=== PATIENT | female | born 1955 ===

== ENCOUNTER 2020-01-09 01:55 | Inpatient (IN) | payer MEDICARE, BC ==
[2020-01-09] VITALS (7 sets, daily range): BP systolic 113–153; BP diastolic 39–76
[~2020-01-09] VITALS: Ht 162.5 cm; Wt 76.9 kg
[~2020-01-09 01:55] MED LIST: ASPIR LOW81 MG PO; CENTRUM SILVER1 EACH PO; HYDR25T PO; KLOR-CON 1010 ME1 PO; LIPITOR40 MG PO; MAGNESIUM400 MG PO; PRINIVIL20 M1 PO
--- NOTE | 2020-01-09 10:10 | NUR ---
MSADMTime: N A 64 year old FEMALE admitted to under services of WILMA HERNANDEZ DO. Pt. arrived via wheel chair from [place]. Chief complaint: SURGERY LT FOOT. CHELSIE SOLIZ
--- NOTE | 2020-01-09 10:32 | NUR ---
DR. DE LOS SANTOS'S OFFICE NOTIFIED OF CONSULT.
--- NOTE | 2020-01-09 20:00 | NUR ---
RESTING IN BED; VOICES NO C/O AT THIS TIME. CALL LIGHT WITHIN REACH.
[2020-01-10] VITALS: BP 126/54
--- NOTE | 2020-01-10 04:00 | NUR ---
RESTING IN BED; VOICES NO C/O AT THIS TIME. CALL LIGHT WITHIN REACH.
--- NOTE | 2020-01-10 05:11 | NUR ---
SHAUN VILLEGAS [id number] Please refer to the physician's history and physical for past medical history, comorbid conditions, and allergies. Diagnosis: OSTEOMYLEITIS LEFT FOOT Rigo Score: 21,LOW OR NO RISK WOUND DESCRIPTIONS: Dressing intact to left lower extremity. No strikethrough drainage noted at time of assessment. Patient stated she is unsure of where she is going to follow up since she lives in [place] and was referred up here from her podiatry office to this podiatry office up here. She states she is waiting for them to tell her who she needs to follow up. Surface the patient is resting on: Isoflex SKIN PREVENTION RECOMMENDATION: 1. Pressure redistribution support surface as appropriate 2. Elevate heels 3. Remove boots/TEDS every shift and reapply 4. Head of bed 30 degrees as tolerated 5. Assess nutrition and hydration 6. Manage moisture 7. Avoid the use of containment devices while in bed 8. Use absorptive products on surfaces limit layers of linens on bed 9. Turn and reposition every 1-2 hours in bed and every 1 hour in chair as tolerated 10. Weight shifts every 15 minutes while up in chair 11. Offloading with pillows or device to keep heels elevated off bed 12. Monitor skin at least every shift 13. Inspect under medical devices twice a day WOUND TREATMENT RECOMMENDATIONS: Patient is waiting for podiatry to state where she will follow up since she lives in [place]
[2020-01-10 08:00] VITALS: BP 152/72
--- NOTE | 2020-01-10 08:44 | NUR ---
Dr. Luis notified of wound care recommendations
[2020-01-10 10:58] LABS: BASO % 0.5 % (0.0-1.0); EOS # 0.2 10*3/uL (0.0-0.4); EOS % 3.6 % (1.0-4.0); HEMATOCRIT 37.7 % (37.0-47.0); HEMOGLOBIN 12.7 g/dl (12.0-16.0); LYMPH # 2.8 10*3/uL (1.3-4.4); LYMPH % 49.1 % (27.0-41.0); MEAN CELL VOLUME 89.8 fl (81.0-99.0); MEAN CORPUSCULAR HGB 30.2 pg (27.0-31.0); MEAN CORPUSCULAR HGB CONC 33.7 g/dl (33.0-37.0); MEAN PLATELET VOLUME 10.2 fl (9.6-12.3); MONO # 0.4 10*3/uL (0.1-1.0); MONO % 6.9 % (3.0-9.0); NEUT # 2.2 10*3/uL (2.3-7.9); NEUT % 39.9 % (47.0-73.0); PLATELET COUNT AUTOMATED 197 10*3/uL (130-400); RED CELL DISTRI WIDTH 13.1 % (0-14.5); WHITE BLOOD COUNT 5.6 10*3/uL (4.8-10.8)
--- NOTE | 2020-01-10 11:00 | NUR ---
Occupational Therapy evaluation completed on four with full evaluation to follow. Recommend occupational therapy per plan of care and SNF upon discharge. Thank you for this referral. Susy Granda OTR/L
[2020-01-10 11:05] LABS: ACID FAST SPEC PROCESSING Tissue Grinding (.)
[2020-01-10 11:05] LABS: ACID FAST SPEC PROCESSING Tissue Grinding (.)
[2020-01-10 11:05] LABS: ACID FAST SPEC PROCESSING Tissue Grinding (.)
[2020-01-10 11:27] LABS: ACT PARTIAL THROMBO TIME 25.4 SECONDS (20.0-32.1)
[2020-01-10 11:28] LABS: ALBUMIN 2.9 gm/dl (3.1-4.5); ALKALINE PHOSPHATASE 94 U/L (45-117); BUN 12 mg/dl (7-24); CHLORIDE 108 mmol/L (98-107); CREATININE 0.49 mg/dL (0.55-1.02); PHOSPHOROUS 2.9 mg/dL (2.5-4.9); POTASSIUM 3.6 mmol/L (3.5-5.1); SGOT/AST 14 IU/L (3-35); SGPT/ALT 28 U/L (12-78); SODIUM 142 mmol/L (136-145); TOTAL PROTEIN 6.7 gm/dL (6.4-8.2)
--- NOTE | 2020-01-10 11:28 | NUR ---
PHYSICAL THERAPY Pt was seen for evaluation today while pt on 4th floor. Pt was educated on maintaining NWB left LE during transfers, as well as avoiding resting left foot onto floor. Pt completed transfers with use of FWW with maximal cuing and required CGA for safety to bed side recliner. Refer to PT evaluation for further details. Pt is moderate complexity based on current and past medical history, as well as current functional status. Recommend home health PT following acute care discharge. Thank you for this referral Christina Calvillo, PT
[2020-01-10 11:29] LABS: FREE T4 0.9 ng/dl (0.76-1.46)
--- NOTE | 2020-01-10 11:53 | NUR ---
Nutritional Support Services Note: Dx of osteomyelitis of left foot, HTN. Ht.5'4 Wt.170#. Appetite is good for meals. She is eating 100% of all meals. She receives a regular diet as ordered. No other nutrition intervention needed at this time. Will follow as needed. Alma Rosa Shanks Rdn Ld
[2020-01-10 12:00] VITALS: BP 155/70
--- NOTE | 2020-01-10 12:07 | NUR ---
Leacher in to talk to patient. Patient states lives at HOME with . There are FEW steps in the home. Physician: PT SEE MD IN [facility] Pharmacy: [facility] Home health services: NONE Patient's level of ADLs: INDEPENDENT Patient has working utilities: YES DME: [facility]CHA[facility] Follow-up physician's appointment after d/c: PREFERS TO MAKE OWN ON DISCHARGE Does patient want to access PORTAL?: Discharge plan PT LIVES WITH AT HOME AND IS INDEPENDENT IN HER CARE. STATES THEY TOLD HER SHE WOULD NEED IV ANTIBIOTICS ON DISCHARGE. WILL WAIT FOR ORDERS AFTER CULTURES BACK. PT LIVES IN [facility]. WILL CONTINUE TO FOLLOW. . LISA DEVINE
--- NOTE | 2020-01-10 13:45 | NUR ---
PHYSICAL THERAPY Patient seen this pm 1:1 for therapy visit and was sitting up in bedside chair following lunch, upon therapist arrival. Patient identified by name / and reports no c/o's pain at this time. Patient performed several sit to stand transfers from low chair surface, CGA, demonstrating slow rise, requiring v/c to improve transfer technique. Patient is NWB on L LE while presenting with gauze / opal wrap and heel protector. Patient completed several additional transfers, improving to SBA, use of wh walker standing support, NWB on L LE, tolerating approx 90 seconds static stand each trial. Patient still reports no c/o's pain and demonstrated Fair+ standing balance with Good upright posture. Patient returned to bedside chair with only mild fatigue noted and remained with call light, tray table and telephone. Will continue per POC as tolerated, total treatment time 14 minutes. Ady Max, HEALTH SCIENCES DEPARTMENT CHAIR
[2020-01-10 16:00] VITALS: BP 132/51
[2020-01-10 20:00] VITALS: BP 147/60
--- NOTE | 2020-01-10 21:27 | NUR ---
24 HR chart check completed.
[2020-01-11] VITALS: BP 131/60
--- NOTE | 2020-01-11 04:10 | NUR ---
ALERT PLEASANT. NO ACUTE DISTRESS NOTED. WAS UP TO BEDSIDE COMMODE AND BACK TO BED. NONWT BEARING ON LEFT LEG.
--- NOTE | 2020-01-11 07:58 | NUR ---
Faxed prescriptions from [facility] to [facility]. IV Daptomycin 10 mg/kg daily x 6 weeks and IV Ertapenem 1 gm daily x 6 weeks. Awaiting response.
[2020-01-11 08:00] VITALS: BP 125/94
--- NOTE | 2020-01-11 08:42 | NUR ---
OT NOTE Attempted to see pt this A.M. for OT session and upon arrival pt was under a medical procedure. Will check back at a later time/date and continue with POC as able. DAKOTAH Castañeda/Mark
--- NOTE | 2020-01-11 09:44 | NUR ---
Received call from Meme from [facility]. They are going to send the prescriptions to their [place] office. Awaiting response from their [place] office.
--- NOTE | 2020-01-11 11:00 | NUR ---
OT NOTE Pt was seen this A.M. 1:1 for 15 minute OT session. Upon arrival pt was supine in bed. Pt identified by name and and had no complaints at this time. Pt transferred supine to sit EOB with SBA. Sit to stand completed from bed level with CGA and use of w/w for UE support. Challenged pt's static standing tolerance needed for increased I in self care tasks and functional transfers. Pt was able to tolerate aprox 3-4 minutes at a time before sitting due to fatigue amd throughout pt was 100% compliant with NWB to LLE. Standing piot then completed from the EOB to the recliner with CGA and use of w/w. There she was left with call light in hand, tray table in place, and phone in reach Continue with rec D/C plan to home with home health. DAKOTAH Castañeda/Mark
--- NOTE | 2020-01-11 11:18 | NUR ---
PHYSICAL THERAPY TREATMENT TIME: IN 10:52 17 MINUTES TOTAL. Patient presented to therapy in supine in bed with head of bed elevated and bed alarm activated. Patient reports minimal to no pain in the L LE. Patient gives informed consent for treatment. Patient was identified by name and on wristband. Patient performed supine to sitting on EOB with SBA. Patient sat on EOB SBA. Patient transferred sit to stand from EOB with SBA. Patient completed SPT to bedside chair with Walker and SBA-CGA. Patient completed sit to stand from bedside chair with CGA-SBA. Patient stood at the Walker for 3 min 23 seconds with SBA-CGA. Patient was left in bedside chair with call light within reach and tray table in front of patient. Patient was 1:1 with this ENGINE INSPECTOR for 17 minutess total. WILMER RÍOS ENGINE INSPECTOR
--- NOTE | 2020-01-11 11:30 | NUR ---
PER MANOHAR AT [facility] MEDS ARE COVERED AT 100%. THEY WILL HAVE THEM DELIVERED TO PT HOME BY NOON TOMORROW. FAXED REFERRAL TO [facility] FOR REVIEW. THEY WILL CALL ME AFTER THEY REVIEW CHART.
[2020-01-11 12:00] VITALS: BP 113/51
--- NOTE | 2020-01-11 12:40 | NUR ---
PHYSICAL THERAPY CO-SIGN I approve of the Physical Therapy notes written above. Malini Epperson PT
--- NOTE | 2020-01-11 12:42 | NUR ---
OCCUPATIONAL THERAPY CO-SIGN I approve of the Occupational Therapy notes written above. RAIN MARS, OTR/L
--- NOTE | 2020-01-11 12:51 | NUR ---
HAVE ATTEMPTED TO FAX REFERRAL SEVERAL TIMES TO [facility] BUT LINE IS BUSY. CALLED TO MAKE SURE I HAD THE RIGHT NUMBER WHICH I DID. PER AI AT [facility] SHE STATES TO EMAIL REFERRAL WHICH I DID.
--- NOTE | 2020-01-11 13:17 | NUR ---
RECEIVED A RETURN CALL FROM [facility] THEY ARE ACCEPTING PT AND WILL BE AT HER HOUSE AFTER NOON TOMORROW TO START TREATMENT. PT INFORMED.
--- NOTE | 2020-01-11 14:50 | NUR ---
UNABLE TO OBTAIN DISCHARGE PHOTO/MEASUREMENTS DUE TO BULKY DRSG TO LEFT LEG/FOOT. ORDERED NOT TO REMOVE BY PODIATRY.
--- NOTE | 2020-01-11 15:24 | NUR ---
Received call from Nata at [facility]. They are going to drop off her IVs tonight on there 6pm run. Notified patient.
--- NOTE | 2020-01-11 17:03 | NUR ---
Discharge instructions reviewed with patient/family. Patient receptive and verbalizes understanding. Follow-up care arranged. Written instructions given to patient/family. FITO MCKEON
== END 2020-01-11 17:03 | disposition home or self-care (01) | DRG 479 ==
LOC: SDC 01:55 → 4E 09:15 → SDC 11:00 → 4E 01-11 17:03
PROVIDERS: Internal Medicine; Podiatrist; ADMIT Internal Medicine
PROC: 0QBP0ZX Excision of Left Metatarsal, Open Approach, Diagnostic (ICD-10-PCS; principal; 2020-01-09)
PROC: 0QBP0ZZ Excision of Left Metatarsal, Open Approach (ICD-10-PCS; principal; 2020-01-09)
PROC: B548ZZA Ultrasonography of Superior Vena Cava, Guidance (ICD-10-PCS; 2020-01-11)
PROC: 02HV33Z Insertion of Infusion Device into Superior Vena Cava, Percutaneous Approach (ICD-10-PCS; 2020-01-11)
DX: M86.172 Other acute osteomyelitis, left ankle and foot (principal); L08.89 Other specified local infections of the skin and subcutaneous tissue; E78.5 Hyperlipidemia, unspecified; I10 Essential (primary) hypertension; L97.529 Non-pressure chronic ulcer of other part of left foot with unspecified severity; M21.962 Unspecified acquired deformity of left lower leg; Q05.9 Spina bifida, unspecified; Z90.49 Acquired absence of other specified parts of digestive tract; Z83.3 Family history of diabetes mellitus; Z82.3 Family history of stroke; Z80.1 Family history of malignant neoplasm of trachea, bronchus and lung; Z82.49 Family history of ischemic heart disease and other diseases of the circulatory system; Z79.82 Long term (current) use of aspirin; Z79.899 Other long term (current) drug therapy

== ENCOUNTER → 2020-03-19 | Day surgery (SDC) | payer MEDICARE, BC ==
[~2020-03-19] VITALS: Ht 162.5 cm; Wt 76.7 kg
[~2020-03-19] MED LIST changes: +DOXYCYCLINE100 M3 PO; +GLUCOPHAGE500 M1 PO; +TRAMADOL HCL100 MG PO; +XARELTO10 MG PO
[2020-03-19 09:00] VITALS: BP 113/48
[2020-03-19 14:12] VITALS: BP 120/51
[2020-03-19 14:27] VITALS: BP 98/44
[2020-03-19 14:42] VITALS: BP 107/53
[2020-03-19 14:57] VITALS: BP 106/59
[2020-03-19 15:12] VITALS: BP 119/58
== END | disposition home or self-care (01) ==
LOC: SDC 03-18 11:00
DX: M21.6X2 Other acquired deformities of left foot (principal); M20.42 Other hammer toe(s) (acquired), left foot; M20.12 Hallux valgus (acquired), left foot; M21.172 Varus deformity, not elsewhere classified, left ankle; M19.072 Primary osteoarthritis, left ankle and foot; M24.542 Contracture, left hand; E11.9 Type 2 diabetes mellitus without complications; I10 Essential (primary) hypertension; Z79.899 Other long term (current) drug therapy

== ENCOUNTER → 2020-04-02 | Outpatient (CLI) | payer MEDICARE, BC | END | disposition home or self-care (01) | LOC: COVID19 11:19 | DX: Z01.818 Encounter for other preprocedural examination (principal); Z11.59 Encounter for screening for other viral diseases; W57.XXXA Bitten or stung by nonvenomous insect and other nonvenomous arthropods, initial encounter; Y93.89 Activity, other specified; Y92.89 Other specified places as the place of occurrence of the external cause; Y99.8 Other external cause status ==

== ENCOUNTER → 2020-04-09 | Day surgery (SDC) | payer MEDICARE, BC ==
[~2020-04-09] VITALS: Ht 162.5 cm; Wt 76.2 kg
[2020-04-09 13:15] VITALS: BP 140/79
[2020-04-09 17:45] VITALS: BP 128/63
[2020-04-09 18:00] VITALS: BP 117/50
[2020-04-09 18:15] VITALS: BP 129/61
[2020-04-09 18:30] VITALS: BP 125/69
[2020-04-09 18:45] VITALS: BP 133/70
== END | disposition home or self-care (01) ==
LOC: SDC 04-03 13:15
DX: M25.372 Other instability, left ankle (principal); M24.542 Contracture, left hand; I10 Essential (primary) hypertension; E11.9 Type 2 diabetes mellitus without complications; E78.5 Hyperlipidemia, unspecified; Z98.890 Other specified postprocedural states; Z79.899 Other long term (current) drug therapy